=== PATIENT | female | born 1970 | race Caucasian/White ===

== ENCOUNTER 2022-06-08 09:50 | Emergency (ER) | payer OTHER, BC ==
[~2022-06-08] VITALS: Ht 162.5 cm; Wt 80.7 kg
[~2022-06-08 09:50] MED LIST: MEDROL DOSEPAK4 MG PO; MOTRIN800 MG PO; PERCOCET 325 MG1 TA2 PO; SERTRALINE HYD100 MG PO; ZEGERID 40 MG PO
[2022-06-08] MEDS ORDERED: CYCLOBENZAPRINE10 MG PO (10:00)
== END 2022-06-08 10:51 | disposition home or self-care (01) ==
LOC: ED 09:50
DX: S46.912A Strain of unspecified muscle, fascia and tendon at shoulder and upper arm level, left arm, initial encounter (principal); M54.50 Low back pain, unspecified; K21.9 Gastro-esophageal reflux disease without esophagitis; F32.A Depression, unspecified; Z88.2 Allergy status to sulfonamides; Z88.1 Allergy status to other antibiotic agents; Z88.8 Allergy status to other drugs, medicaments and biological substances; Z90.49 Acquired absence of other specified parts of digestive tract; Z98.890 Other specified postprocedural states; V43.92XA Unspecified car occupant injured in collision with other type car in traffic accident, initial encounter; Y93.89 Activity, other specified; Y92.410 Unspecified street and highway as the place of occurrence of the external cause; Y99.8 Other external cause status

== ENCOUNTER 2024-09-15 10:00 | Emergency (ER) | payer BC ==
[~2024-09-15] VITALS: Ht 162.5 cm; Wt 80.7 kg
[~2024-09-15 10:00] MED LIST changes: +CYCLOBENZAPRINE10 MG PO
[2024-09-15] MEDS ORDERED: Tdap Vaccine 0.5 ML SYR (Adult Vaccine) IM ONE (10:25)
[2024-09-15] MEDS ORDERED: Ondansetron4 MG PO (11:29)
[2024-09-15] MEDS ORDERED: TRAMADOL HCL50 MG PO (11:29)
== END 2024-09-15 11:37 | disposition home or self-care (01) ==
LOC: ED 10:00
DX: S06.0X0A Concussion without loss of consciousness, initial encounter (principal); K21.9 Gastro-esophageal reflux disease without esophagitis; F32.A Depression, unspecified; Z79.899 Other long term (current) drug therapy; Z88.2 Allergy status to sulfonamides; Z88.8 Allergy status to other drugs, medicaments and biological substances; Z98.890 Other specified postprocedural states; W18.39XA Other fall on same level, initial encounter; Y93.89 Activity, other specified; Y92.832 Beach as the place of occurrence of the external cause; Y99.8 Other external cause status